=== PATIENT | male | born 1985 | race Caucasian/White ===

== ENCOUNTER 2016-11-28 10:29 | Emergency (ER) | payer MEDICAID ==
[~2016-11-28] VITALS: Ht 185.4 cm; Wt 106.6 kg
[2016-11-28 12:09] VITALS: BP 148/87
== END 2016-11-28 13:31 | disposition home or self-care (01) ==
LOC: ER 10:32
DX: S06.9X1A Unspecified intracranial injury with loss of consciousness of 30 minutes or less, initial encounter (principal); M54.2 Cervicalgia; R51 Headache; F12.10 Cannabis abuse, uncomplicated; Y04.0XXA Assault by unarmed brawl or fight, initial encounter; Y93.89 Activity, other specified; Y99.8 Other external cause status; Y92.89 Other specified places as the place of occurrence of the external cause
CPT/HCPCS: 70450; 72125

== ENCOUNTER 2018-07-18 06:29 | Emergency (ER) | payer MEDICAID ==
[~2018-07-18] VITALS: Ht 185.4 cm; Wt 108.9 kg
[2018-07-18 06:51] VITALS: BP 141/87
== END 2018-07-18 07:55 | disposition home or self-care (01) ==
LOC: ER 06:33
DX: S93.602A Unspecified sprain of left foot, initial encounter (principal); F12.10 Cannabis abuse, uncomplicated; V87.8XXA Person injured in other specified noncollision transport accidents involving motor vehicle (traffic), initial encounter; Y93.55 Activity, bike riding; Y92.488 Other paved roadways as the place of occurrence of the external cause; Y99.8 Other external cause status
CPT/HCPCS: 73630

== ENCOUNTER 2020-04-08 14:54 | Emergency (ER) | payer SELFPAY ==
[~2020-04-08] VITALS: Ht 185.4 cm; Wt 121.1 kg
[2020-04-08 15:20] VITALS: BP 141/94
[2020-04-08] MEDS ORDERED: LIDOCAINE 1% HCL (LOCAL ANESTH.) INJ 20ML MDV IJ ONE (15:45)
== END 2020-04-08 16:00 | disposition home or self-care (01) ==
LOC: ER 14:54
DX: S61.011A Laceration without foreign body of right thumb without damage to nail, initial encounter (principal); X58.XXXA Exposure to other specified factors, initial encounter; Y93.89 Activity, other specified; Y92.89 Other specified places as the place of occurrence of the external cause; Y99.8 Other external cause status
CPT/HCPCS: 12002; 99282; J2001

== ENCOUNTER 2024-02-16 20:52 | Emergency (ER) | payer MEDICAID, OTHER ==
[~2024-02-16] VITALS: Ht 185.4 cm; Wt 113.0 kg
[2024-02-17 02:41] VITALS: BP 144/75; PULSE 71; RESP 18; TEMP 98.5; O2SAT 96
[2024-02-17] MEDS ORDERED: MORPHINE SULFATE INJ 2 MG/ml SYRG IM ONE (02:45)
[2024-02-17] MEDS: KETOROLAC TROMETH 60MG/2ML VIAL IM ONE (03:25)
== END 2024-02-17 03:54 | disposition home or self-care (01) ==
LOC: ER 20:52
DX: S13.8XXA Sprain of joints and ligaments of other parts of neck, initial encounter (principal); S33.5XXA Sprain of ligaments of lumbar spine, initial encounter; S40.012A Contusion of left shoulder, initial encounter; S40.011A Contusion of right shoulder, initial encounter; S20.214A Contusion of middle front wall of thorax, initial encounter; S43.101A Unspecified dislocation of right acromioclavicular joint, initial encounter; S09.8XXA Other specified injuries of head, initial encounter; F15.90 Other stimulant use, unspecified, uncomplicated; V29.888A Rider (driver) (passenger) of other motorcycle injured in other specified transport accidents, initial encounter; Y93.89 Activity, other specified; Y92.89 Other specified places as the place of occurrence of the external cause; Y99.8 Other external cause status
CPT/HCPCS: 70450; 71250; 72125; 72131; 73000; 73030; 96372; 99285; J1885

== ENCOUNTER 2024-10-25 13:48 | Emergency (ER) | payer MEDICAID ==
[~2024-10-25] VITALS: Ht 185.4 cm; Wt 128.8 kg
[2024-10-25 14:51] VITALS: BP 150/91; PULSE 78; RESP 20; TEMP 98.4; O2SAT 97
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
--- NOTE | 2024-10-25 15:42 | DVH ---
EXAM: XY R FOOT 3 VIEW XRAY CLINICAL HISTORY: INJURY COMPARISON: None TECHNIQUE: XY R FOOT 3 VIEW XRAY Findings/Impression: 3 views of the right foot. There is no evidence of an acute fracture, dislocation, blastic, or lytic lesions. No radiopaque foreign bodies. Mild soft tissue edema. If there is high clinical suspicion for an acute fracture, recommend CT for further evaluation.
== END 2024-10-25 17:30 | disposition home or self-care (01) ==
LOC: ER 13:48
DX: S93.501A Unspecified sprain of right great toe, initial encounter (principal); X58.XXXA Exposure to other specified factors, initial encounter; Y93.89 Activity, other specified; Y92.89 Other specified places as the place of occurrence of the external cause; Y99.8 Other external cause status
CPT/HCPCS: 73630